=== PATIENT | female | born 1995 | race Caucasian/White ===

== ENCOUNTER → 2021-03-31 | Emergency (ER) | payer OTHER ==
[~2021-03-31] VITALS: Ht 157.5 cm; Wt 59.0 kg
[~2021-03-31] MED LIST: LEXAPRO5 MG PO
== END | disposition left against medical advice (07) ==
LOC: ER 15:32
DX: Z53.21 Procedure and treatment not carried out due to patient leaving prior to being seen by health care provider (principal)